=== PATIENT | male | born 1990 | race Caucasian/White ===

== ENCOUNTER 2023-02-05 13:45 | Emergency (ER) | payer OTHER ==
--- OUTSIDE RECORDS SUMMARY | 2023-02-05 13:48 | XMS REPORT | Continuity of Care Document ---
:1990 Author Organization [facility] t Address [address] [place] [address] Care Team Providers Name Role Phone Unavailable Unavailable Unavailable Problems This patient has no known problems. Allergies, Adverse Reactions, Alerts This patient has no known allergies or adverse reactions. Medications This patient has no known medications. Procedures This patient has no known procedures. Encounters Start End Encounter Admission Attending Care Care Encounter Source Date/Time Date/Time Type Type Clinicians Facility Department ID 2021-05-16 2021-05-16 Outpatient PRIV PRIV [id number] [id number] [facility] 00:00:00 00:00:00 [id number] Medica l 2021-05-16 2021-05-16 Outpatient PRIV PRIV [id number] [id number] [facility] 00:00:00 00:00:00 [id number] Medica l Results This patient has no known results.
[2023-02-05] MEDS ORDERED: FENTANYL CITR 100 MCG/2 ML ONE (14:39)
[2023-02-05] MEDS ORDERED: ONDANSETRON 4 MG/2 ML VIAL ONE (14:40)
[2023-02-05 14:44] LABS: Hematocrit 52.2 % (39.6-49.0); Lymphocytes % 34.9 % (15.3-44.8); MCV 90.6 fL (80-100); MPV 12.5 fL (7.6-11.3); RBC Red Blood Cell Count 5.76 M/uL (4.33-5.43)
[2023-02-05 14:56] LABS: Albumin 4.4 g/dL (3.4-5.0); Bilirubin Total 0.6 mg/dL (0.2-1.0); Potassium 3.7 mEq/L (3.5-5.1); Protein, Total 8.1 g/dL (6.4-8.2)
--- NOTE | 2023-02-05 15:21 | ER ---
Nurse's Notes [facility] Name: Shilo Devlin Age: 32 yrs Sex: Male : 1990 Arrival Date: 02/05/2023 Time: 13:45 Bed 11 Private MD: Diagnosis: Resolved esophageal food impaction, nausea Presentation: 02/05 13:45 Chief complaint: Patient states: "I was eating fish, shrimp, and zucchini and now I aa5 feel like the food is stuck deep in my chest". 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 Equal and unlabored respirations noted. 13:45 Coronavirus screen: At this time, the client does not indicate any symptoms associated aa5 with coronavirus-19. Ebola Screen: Patient denies travel to an Ebola-affected area in the 21 days before illness onset. Initial Sepsis Screen: Does the patient meet any 2 criteria? No. Patient's initial sepsis screen is negative. Does the patient have a suspected source of infection? No. Patient's initial sepsis screen is negative. Risk Assessment: Do you want to hurt yourself or someone else? Patient reports no desire to harm self or others. Onset of symptoms was February 05, 2023. 13:45 Acuity: YOUNG 3 aa5 13:45 Method Of Arrival: Ambulatory aa5 Triage Assessment: 13:59 General: Appears uncomfortable, Behavior is cooperative, appropriate for age, agitated, os anxious. Pain: Denies pain. Cardiovascular: No deficits noted. Respiratory: No deficits noted. GI: Reports Patient states, " I feel like something is stuck in my lower throat, after having only one bite of fried shrimp". Historical: - Allergies: 13:45 No Known Allergies; aa5 - PMHx: 13:45 None; aa5 - PSHx: 13:45 jaw; aa5 - Immunization history:: Adult Immunizations up to date. - Social history:: Smoking status: unknown. Screenin:47 [facility] ED Fall Risk Assessment (Adult) History of falling in the last 3 months, ll1 including since admission No falls in past 3 months (0 pts) Confusion or Disorientation No (0 pts) Intoxicated or Sedated No (0 pts) Impaired Gait No (0 pts) Mobility Assist Device Used No (0 pt) Altered Elimination No (0 pt) Score/Fall Risk Level 0 - 2 = Low Risk. Abuse screen: Denies threats or abuse. Nutritional screening: No deficits noted. Tuberculosis screening: No symptoms or risk factors identified. Vital Signs: 13:45 BP 152 / 84; Pulse 92; Resp 19 S; Temp 98.6(O); Pulse Ox 97% on R/A; Weight 104.33 kg aa5 (R); Height 5 ft. 11 in. (R); 15:09 BP 126 / 80; Pulse 82; Resp 17; Pulse Ox 98% ; os 13:45 Body Mass Index 32.08 (104.33 kg, 180.34 cm) aa5 ED Course: 13:45 Arm band placed on Patient placed in an exam room, on a stretcher. aa5 13:49 Patient arrived in ED. cm10 13:51 Triage completed. aa5 13:59 Desiree Guidry, ANNA is Primary Nurse. os 14:10 Mayda Higuera MD is Attending Physician. sp3 14:37 CBC with Diff Sent. os 14:37 CMP Sent. os 14:37 Lipase Sent. os 15:47 No provider procedures requiring assistance completed. Inserted saline lock: 20 gauge ll1 antecubital area, using aseptic technique. 15:48 Patient has correct armband on for positive identification. ll1 15:48 IV discontinued, intact, bleeding controlled, No redness/swelling at site. Pressure ll1 dressing applied. Administered Medications: 14:37 Drug: fentaNYL (PF) IVP 25 mcg Route: IVP; Site: right antecubital; os 15:08 Follow up: Response: No adverse reaction os 14:38 Drug: Ondansetron IVP 4 mg Route: IVP; Site: right antecubital; os 15:09 Follow up: Response: No adverse reaction os Medication: 15:48 VIS not applicable for this client. ll1 Outcome: 15:20 Discharge ordered by . sp3 15:47 Discharged to home ambulatory. ll1 15:47 Condition: improved 15:47 Discharge instructions given to patient, friend, Instructed on discharge instructions. 15:49 Patient left the ED. ll1 Signatures: Mckenzie Jensen RN RN aa5 Elpidio Gil RN RN ll1 Mayda Higuera MD MD sp3 Desiree Guidry RN RN os Larry, Vanessa, RN RN cm10
--- NOTE | 2023-02-05 15:21 | EDPHYS ---
Physician Documentation [facility] Name: Shilo Devlin Age: 32 yrs Sex: Male : 1990 Arrival Date: 02/05/2023 Time: 13:45 Bed 11 Private MD: ED Physician Mayda Higuera HPI: 02/05 14:42 This 32 yrs old Male presents to ER via Ambulatory with complaints of possible food sp3 bolus. 14:42 32-year-old male with no past medical history presents with chief complaint substernal sp3 chest pain and feelings of food impaction. Patient was eating seafood at local restaurant and developed some vomiting and feelings as described above. He denies any prior history of similar symptoms, prior gastritis or other GI problems or any other past medical history whatsoever. He takes no medications and has had no major surgeries. Currently he has had a few episodes of small emesis and cannot tell whether the emesis is coming from the stomach or his esophagus/posterior oropharynx. While I was interviewing him, he had 1 episode of emesis after which he felt significantly better. Emesis however was just liquid and had no food in it.. Historical: - Allergies: 13:45 No Known Allergies; aa5 - PMHx: 13:45 None; aa5 - PSHx: 13:45 jaw; aa5 - Immunization history:: Adult Immunizations up to date. - Social history:: Smoking status: unknown. ROS: 14:45 Constitutional: Negative for fever, chills, and weight loss, Eyes: Negative for injury, sp3 pain, redness, and discharge, ENT: Negative for injury, pain, and discharge, Neck: Negative for injury, pain, and swelling, Cardiovascular: Negative for chest pain, palpitations, and edema, Respiratory: Negative for shortness of breath, cough, wheezing, and pleuritic chest pain, Back: Negative for injury and pain, MS/Extremity: Negative for injury and deformity, Skin: Negative for injury, rash, and discoloration, Neuro: Negative for headache, weakness, numbness, tingling, and seizure, Psych: Negative for depression, anxiety, suicide ideation, homicidal ideation, and hallucinations, Allergy/Immunology: Negative for hives, rash, and allergies, Endocrine: Negative for neck swelling, polydipsia, polyuria, polyphagia, and marked weight changes. 14:45 All other systems are negative. Exam: 14:45 Constitutional: This is a well developed, well nourished patient who is awake, alert, sp3 and in no acute distress. Head/Face: Normocephalic, atraumatic. Eyes: Pupils equal round and reactive to light, extra-ocular motions intact. Lids and lashes normal. Conjunctiva and sclera are non-icteric and not injected. Cornea within normal limits. Periorbital areas with no swelling, redness, or edema. ENT: Nares patent. No nasal discharge, no septal abnormalities noted. External auditory canals are clear. Oropharynx with no redness, swelling, or masses, exudates, or evidence of obstruction, uvula midline. Mucous membranes moist. Neck: Trachea midline, no thyromegaly or masses palpated, and no cervical lymphadenopathy. Supple, full range of motion without nuchal rigidity, or vertebral point tenderness. No Meningismus. Chest/axilla: Normal chest wall appearance and motion. Nontender with no deformity. No lesions are appreciated. Cardiovascular: Regular rate and rhythm with a normal S1 and S2. No gallops, murmurs, or rubs. Normal PMI, no JVD. No pulse deficits. Respiratory: Lungs have equal breath sounds bilaterally, clear to auscultation and percussion. No rales, rhonchi or wheezes noted. No increased work of breathing, no retractions or nasal flaring. Back: No spinal tenderness. No costovertebral tenderness. Full range of motion. Skin: Warm, dry with normal turgor. Normal color with no rashes, no lesions, and no evidence of cellulitis. MS/ Extremity: Pulses equal, no cyanosis. Neurovascular intact. Full, normal range of motion. Neuro: Awake and alert, GCS 15, oriented to person, place, time, and situation. Cranial nerves II-XII grossly intact. Motor strength 5/5 in all extremities. Sensory grossly intact. Cerebellar exam normal. Normal gait. Psych: Awake, alert, with orientation to person, place and time. Behavior, mood, and affect are within normal limits. 14:45 Abdomen/GI: Very mild epigastric tenderness to deep palpation. After patient had his emesis episode, he does feel much better. Patient is tolerating airway and secretions currently.. Vital Signs: 13:45 BP 152 / 84; Pulse 92; Resp 19 S; Temp 98.6(O); Pulse Ox 97% on R/A; Weight 104.33 kg aa5 (R); Height 5 ft. 11 in. (R); 15:09 BP 126 / 80; Pulse 82; Resp 17; Pulse Ox 98% ; os 13:45 Body Mass Index 32.08 (104.33 kg, 180.34 cm) aa5 MDM: 14:17 Patient medically screened. sp3 14:45 Data reviewed: vital signs, nurses notes, lab test result(s). ED course: We will obtain sp3 basic laboratory values, and administer Zofran and fentanyl IV. Fentanyl is being used as a smooth muscle dilator. P.o. challenge will be attempted after 20 minutes after medication administration. If is not able to tolerate, we will consult GI or surgery however can obtain endoscopy. Disposition pending work-up and patient course.. 15:19 ED course: Patient is now tolerating both solids and liquid food after medication. We sp3 will safely discharge him home at this time with follow-up with his PCP as needed.. 02/05 14:17 Order name: CBC with Diff sp3 02/05 14:17 Order name: CMP sp3 02/05 14:17 Order name: Lipase sp3 02/05 14:17 Order name: IV Saline Lock; Complete Time: 14:37 sp3 02/05 14:17 Order name: Labs collected and sent; Complete Time: 14:37 sp3 02/05 14:18 Order name: PO challenge: PO challenge 15-20 mins after Fentanyl and Zofran sp3 administration; Complete Time: 15:09 Administered Medications: 14:37 Drug: fentaNYL (PF) IVP 25 mcg Route: IVP; Site: right antecubital; os 15:08 Follow up: Response: No adverse reaction os 14:38 Drug: Ondansetron IVP 4 mg Route: IVP; Site: right antecubital; os 15:09 Follow up: Response: No adverse reaction os Disposition Summary: 02/05/23 15:20 Discharge Ordered Location: Home sp3 Condition: Stable sp3 Diagnosis - Resolved esophageal food impaction, nausea sp3 Followup: sp3 - With: Private Physician - When: Upon discharge from the Emergency Department - Reason: If symptoms return Discharge Instructions: - Discharge Summary Sheet sp3 - Esophageal Spasm sp3 Forms: - Medication Reconciliation Form sp3 - Thank You Letter sp3 - Antibiotic Education sp3 - Prescription Opioid Use sp3 Signatures: Dispatcher [employer] Mckenzie Chamberlain RN RN aa5 Elpidio Gil RN RN ll1 Mayda Higuera MD MD sp3 Desiree Guidry RN RN os
[2023-02-05 16:13] VITALS: TEMP 98.6
[2023-02-05 16:14] VITALS: BP 126/80; O2SAT 98
== END 2023-02-05 15:49 | disposition home or self-care (01) ==
LOC: ER 13:45
DX: R11.0 Nausea (principal)
CPT/HCPCS: 85025; 36415; 83690; 80053; 96375; 96374; 99284; J3010; J2405